=== PATIENT | male | born 1980 | race Caucasian/White ===

== ENCOUNTER 2016-10-11 21:33 | Inpatient (IN) | payer MEDICAID ==
[2016-10-11] MEDS ORDERED: Sodium Chloride 0.9% 1,000 ML ONE (22:25)
--- NOTE | 2016-10-11 22:33 | C.PDOC ---
History Of Present Illness Patient is a 36 year old male who presents to the ER with a complaint of cramping epigastric pain since yesterday. Patient was seen at [facility] for the same symptoms yesterday where he was prescribed an unknown gastritis tablet that has not improved his condition. Patient reports eating refined foods and very few fruits and vegetables. Denies any chest pain, nausea, or vomiting. Time Seen by Provider: 10/11/16 21:52 Chief Complaint (Nursing): Abdominal Pain History Per: Patient History/Exam Limitations: no limitations Onset/Duration Of Symptoms: Hrs Current Symptoms Are (Timing): Still Present Location Of Pain/Discomfort: Epigastric Radiation Of Pain To:: None Quality Of Discomfort: Cramping Associated Symptoms: denies: Nausea, Vomiting, Chest Pain Exacerbating Factors: None Alleviating Factors: None Recent travel outside of the [place]: No Past Medical History Reviewed: Historical Data, Nursing Documentation, Vital Signs Vital Signs: Last Vital Signs Temp 97.5 F L 10/11/16 21:46 Pulse 67 10/11/16 21:46 Resp 16 10/11/16 21:46 BP 118/62 10/11/16 23:12 Pulse Ox 100 10/12/16 01:01 - Medical History PMH: No Chronic Diseases Surgical History: No Surg Hx Family History: States: Unknown Family Hx - Social History Hx Alcohol Use: No Hx Substance Use: No - Immunization History Hx Tetanus Toxoid Vaccination: No Hx Influenza Vaccination: No Hx Pneumococcal Vaccination: No Review Of Systems Cardiovascular: Negative for: Chest Pain Gastrointestinal: Positive for: Abdominal Pain (Epigastric, cramping). Negative for: Nausea, Vomiting Physical Exam - Physical Exam Appears: Well, Non-toxic Skin: Normal Color, Warm, Dry Head: Atraumatic, Normacephalic Oral Mucosa: Moist Chest: Symmetrical, No Tenderness Cardiovascular: Rhythm Regular, No Murmur Respiratory: Normal Breath Sounds, No Rales, No Rhonchi, No Wheezing Gastrointestinal/Abdominal: Soft, Tenderness (Vaguely throughout), Other (Obese) Neurological/Psych: Oriented x3, Normal Speech, Normal Cognition ED Course And Treatment - Laboratory Results Result Diagrams: 10/11/16 22:38 10/11/16 22:38 Lab Interpretation: Abnormal (+ leukocytosis) ECG Rhythm: Sinus Bradycardia ECG Interpretation: Normal Interpretation Of ECG: Minimal voltage criteria for LVH, may be variant. Rate From EC O2 Sat by Pulse Oximetry: 100 - Radiology CXR: Interpreted by Me CXR Interpretation: Yes: No Acute Disease - Other Rad abd x 2 X-Ray: Interpreted by Me (+FOS) - CT Scan/US CT of abdomen w/o contrast Other Rad Studies (CT/US): Read By Radiologist, Radiology Report Reviewed CT/US Interpretation: IMPRESSION: Multiple hypoattenuating lesions in the liver. The largest is a 3.2 cm lesion in the right hepatic lobe. which does not represent a simple cyst. Further evaluation can be performed with CT with dedicated. protocol, MRI or ultrasound. Splenomegaly. Mild mesenteric stranding in the region of the gallbladder. No radiopaque gallstones appreciated. Ultrasound can provide more sensitive evaluation of the biliary system. 13 mm left renal cyst. Areas of apparent bowel wall prominence appear to be due to incomplete distention, but evaluation is. limited without enteric contrast. Progress Note: CT abd/pelvis IV w/ contrast, EKG, and abd x-ray ordered. Toradol IVP, morphine IVP, and IV fluids administered. Reevaluation Time: :33 Reassessment Condition: Improved - Physician Consult Information Outcome Of Conversation: 1330: d/w Dr. Anderson- Surgeon Shot Examiner. Ok to admit and consider US/HIDA in AM Medical Decision Making Medical Decision Making: ? biliary colic Disposition Doctor Will See Patient In The: Hospital Counseled Patient/Family Regarding: Studies Performed, Diagnosis - Disposition Disposition: HOSPITALIZED Disposition Time: :33 Condition: GOOD - Clinical Impression Clinical Impression: Abdominal pain, Biliary colic - Scribe Statement The provider has reviewed the documentation as recorded by the Feroz Sofia All medical record entries made by the Feroz were at my direction and personally dictated by me. I have reviewed the chart and agree that the record accurately reflects my personal performance of the history, physical exam, medical decision making, and the department course for this patient. I have also personally directed, reviewed, and agree with the discharge instructions and disposition.
[2016-10-11 22:50] LABS: BASO # 0.1 K/uL (0.0-0.2); BASO % 0.7 % (0.0-2.0); EOS # 0.1 K/uL (0.0-0.7); EOS % 0.6 % (0.0-4.0); HEMATOCRIT 45.2 % (35.0-51.0); LYMPH # 2.2 K/uL (1.0-4.3); LYMPH % 19.4 % (20.0-40.0); MEAN CELL VOLUME 75.7 fL (80.0-94.0); MEAN CORPUSCULAR HGB CONC 34.3 g/dL (33.0-37.0); MEAN PLATELET VOLUME 8.5 fL (7.2-11.7); MONO # 0.7 K/uL (0.0-0.8); NRBC % 0.2 % (0.0-2.0); RED CELL DISTRIBUTION WIDTH 13.3 % (11.5-14.5); WHITE BLOOD COUNT 11.3 K/uL (4.8-10.8)
[2016-10-11 23:05] LABS: CHLORIDE 100 mmol/L (98-107); POTASSIUM 3.3 mmol/L (3.6-5.2); SODIUM 141 mmol/L (132-148)
[2016-10-11 23:07] LABS: AST/SGOT 27 U/L (17-59); BILIRUBIN,TOTAL 0.7 mg/dL (0.2-1.3); CARBON DIOXIDE 21 mmol/L (22-30); GFR AFRICAN-AMERICAN > 60
[2016-10-11 23:08] LABS: ALB/GLOB RATIO 1.5 (1.0-2.1); ALKALINE PHOSPHATASE 78 U/L (38-126); ALT/SGPT 38 U/L (21-72); BLOOD UREA NITROGEN 18 mg/dL (9-20); CALCIUM 8.4 mg/dl (8.6-10.4); GLUCOSE,RANDOM 121 mg/dL (75-110)
[2016-10-11] MEDS ORDERED: Morphine 4 MG/ML VIAL ONE (23:08)
[2016-10-11] MEDS ORDERED: Sodium Chloride 0.9% 1,000 ML IV ONE (23:08)
[2016-10-11 23:11] LABS: RBC URINE 5 /hpf (0-3); URINE BILIRUBIN NEGATIVE (NEGATIVE); URINE BLOOD NEGATIVE (NEGATIVE); URINE COLOR Yellow (YELLOW); URINE GLUCOSE (UA) NORMAL (Normal); URINE KETONE 2+ mg/dL (NEGATIVE); URINE LEUKOCYTE ESTERASE NEG Leu/uL (Negative); URINE PROTEIN NEGATIVE (NEGATIVE); URINE UROBILINOGEN NORMAL mg/dL (0.2-1.0)
[2016-10-11] MEDS ORDERED: Iohexol 350mg/ml 100 ML ONE (23:41)
--- NOTE | 2016-10-12 00:42 | CT ---
EXAM: CT Abdomen and Pelvis With Intravenous Contrast CLINICAL HISTORY: 36 years old, male; Pain; Abdominal pain; Additional info: Epigastric pain TECHNIQUE: Axial computed tomography images of the abdomen and pelvis with intravenous contrast. This CT exam was performed using one or more of the following dose reduction techniques: automated exposure control, adjustment of the mA and/or kV according to patient size, and/or use of iterative reconstruction technique. Coronal and sagittal reformatted images were created and reviewed. CONTRAST: 100 mL of [id number] administered intravenously. COMPARISON: No relevant prior studies available. FINDINGS: Multiple hypoattenuating lesions in the liver. The largest is a 3.2 cm lesion in the right hepatic lobe which does not represent a simple cyst. The pancreas and adrenal glands demonstrate no acute abnormalities. Splenomegaly. Mild mesenteric stranding in the region of the gallbladder. No radiopaque gallstones appreciated. Ultrasound can provide more sensitive evaluation of the biliary system. The kidneys are symmetric with no evidence of hydronephrosis. 13 mm left renal cyst. The aorta is unremarkable. The small and large bowel as visualized demonstrate no evidence of obstruction or clear focus of inflammation. Areas of apparent bowel wall prominence appear to be due to incomplete distention, but evaluation is limited without enteric contrast. Normal caliber appendix. No ascites. No free air. IMPRESSION: Multiple hypoattenuating lesions in the liver. The largest is a 3.2 cm lesion in the right hepatic lobe which does not represent a simple cyst. Further evaluation can be performed with CT with dedicated protocol, MRI or ultrasound. Splenomegaly. Mild mesenteric stranding in the region of the gallbladder. No radiopaque gallstones appreciated. Ultrasound can provide more sensitive evaluation of the biliary system. 13 mm left renal cyst. Areas of apparent bowel wall prominence appear to be due to incomplete distention, but evaluation is limited without enteric contrast.
[2016-10-12] MEDS ORDERED: Piperacillin/Tazobact 3.375 gm 100 ML IV STA (01:26)
[2016-10-12] MEDS ORDERED: Piperacillin/Tazobact 3.375 gm 100 ML IVPB ONE (01:42)
--- NOTE | 2016-10-12 02:29 | CP.PCM.HP ---
History of Present Illness - History of Present Illness History of Present Illness: GENERAL SURGERY HISTORY AND PHYSICAL FOR FRANNIEALFREDO 36yo M with no PMHx presents to the ED with epigastric and RUQ abdominal pain. The pain began yesterday. He was seen at [facility] and diagnosed with gastritis and given a prescription for Famotidine. Per the patient, no imaging was done and he did not have symptom relief from the Famotidine. The pain worsened, which prompted the patient to come to the ED at [facility]. The pain is worse with moving and eating. He took ibuprofen and an "overseas pill for pain" which did not relieve his symptoms. He made himself vomit once but has not vomited other than that one time. He denies nausea. Denies diarrhea. Last BM 3 days ago but passed flatus today. He denies SOB/CP/fever/chills. Of note, the patient states that this is the third time these symptoms have occurred but previously they went away on their own after several hours. PMHx: none Surgeries: Left foot surgery Allergies: none Social history: denies etoh or tobacco use Present on Admission - Present on Admission Any Indicators Present on Admission: No Review of Systems - Review of Systems All systems: reviewed and no additional remarkable complaints except (as per HPI ) Past Patient History - Past Social History Smoking Status: Never Smoked - PSYCHIATRIC Hx Substance Use: No - SURGICAL HISTORY Hx Surgeries: No Meds Allergies/Adverse Reactions: Allergies Allergy/AdvReac Type Severity Reaction Status Date / Time No Known Allergies Allergy Verified 10/11/16 21:48 Physical Exam - Constitutional Appears: Well - Head Exam Head Exam: ATRAUMATIC, NORMAL INSPECTION, NORMOCEPHALIC - Eye Exam Eye Exam: EOMI, Normal appearance - Respiratory Exam Respiratory Exam: NORMAL BREATHING PATTERN. absent: Respiratory Distress - Cardiovascular Exam Cardiovascular Exam: +S1, +S2 - GI/Abdominal Exam GI & Abdominal Exam: Soft, Tenderness (mildly tender in epigastric and RUQ areas ). absent: Distended, Firm, Guarding, Rebound, Rigid - Extremities Exam Extremities exam: Positive for: normal inspection. Negative for: pedal edema - Neurological Exam Neurological exam: Alert, CN II-XII Intact, Oriented x3 - Psychiatric Exam Psychiatric exam: Normal Affect, Normal Mood - Skin Skin Exam: Dry, Normal Color, Warm Results - Vital Signs Recent Vital Signs: Last Vital Signs Temp 97.5 F L 10/11/16 21:46 Pulse 67 10/11/16 21:46 Resp 16 10/11/16 21:46 BP 118/62 10/11/16 23:12 Pulse Ox 100 10/12/16 01:34 - Labs Result Diagrams: 10/11/16 22:38 10/11/16 22:38 Labs: Laboratory Results - last 24 hr 10/11/16 10/11/16 10/11/16 22:38 22:38 22:49 WBC 11.3 H RBC 5.97 H Hgb 15.5 Hct 45.2 MCV 75.7 L MCH 26.0 L MCHC 34.3 RDW 13.3 Plt Count 283 MPV 8.5 Neut % (Auto) 73.3 Lymph % (Auto) 19.4 L [place] % (Auto) 6.0 Eos % (Auto) 0.6 Baso % (Auto) 0.7 Neut # 8.3 H Lymph # 2.2 [place] # 0.7 Eos # 0.1 Baso # 0.1 Sodium 141 Potassium 3.3 L Chloride 100 Carbon Dioxide 21 L Anion Gap 23 H BUN 18 Creatinine 1.1 Est GFR ( Amer) > 60 Est GFR (Non-Af Amer) > 60 Random Glucose 121 H Calcium 8.4 L Total Bilirubin 0.7 AST 27 ALT 38 Alkaline Phosphatase 78 Troponin I < 0.0120 Total Protein 7.0 Albumin 4.2 Globulin 2.7 Albumin/Globulin Ratio 1.5 Lipase 129 Urine Color Yellow Urine Clarity Hazy Urine pH 8.0 Ur Specific [place] 1.021 Urine Protein Negative Urine Glucose (UA) Normal Urine Ketones 2+ H Urine Blood Negative Urine Nitrate Negative Urine Bilirubin Negative Urine Urobilinogen Normal Ur Leukocyte Esterase Neg Urine RBC (Auto) 5 H Amorphous Sediment Occ H Urine Opiates Screen Urine Methadone Screen Ur Barbiturates Screen Ur Phencyclidine Scrn Ur Amphetamines Screen U Benzodiazepines Scrn U Oth Cocaine Metabols U Cannabinoids Screen 10/11/16 22:49 WBC RBC Hgb Hct MCV MCH MCHC RDW Plt Count MPV Neut % (Auto) Lymph % (Auto) [place] % (Auto) Eos % (Auto) Baso % (Auto) Neut # Lymph # [place] # Eos # Baso # Sodium Potassium Chloride Carbon Dioxide Anion Gap BUN Creatinine Est GFR ( Amer) Est GFR (Non-Af Amer) Random Glucose Calcium Total Bilirubin AST ALT Alkaline Phosphatase Troponin I Total Protein Albumin Globulin Albumin/Globulin Ratio Lipase Urine Color Urine Clarity Urine pH Ur Specific [place] Urine Protein Urine Glucose (UA) Urine Ketones Urine Blood Urine Nitrate Urine Bilirubin Urine Urobilinogen Ur Leukocyte Esterase Urine RBC (Auto) Amorphous Sediment Urine Opiates Screen Negative Urine Methadone Screen Negative Ur Barbiturates Screen Positive H Ur Phencyclidine Scrn Negative Ur Amphetamines Screen Negative U Benzodiazepines Scrn Negative U Oth Cocaine Metabols Negative U Cannabinoids Screen Negative Assessment & Plan - Assessment and Plan (Free Text) Assessment: 36yo M with no PMHx presents to the ED with epigastric and RUQ abdominal pain. - Afebrile, VSS - WBC 11.5 - Hypokalemia K 3.3 - replaced - CT: mesenteric stranding in region of gallbladder, no stones - Ultrasound ordered - HIDA ordered - Zosyn - Morphine and Zofran PRN - NPO and IV fluids - Discussed plan with Dr. Melvin
[2016-10-12] MEDS: Sodium Chloride 0.9% 1,000 ML IV SCH ×3 (03:46→19:11)
[2016-10-12] MEDS: Piperacill/Tazo 3.375gm in Dex 3.375 GM/50 ML BAG IVPB SCH ×4 (03:48→20:45)
--- NOTE | 2016-10-12 12:44 | RAD ---
PROCEDURE: Radiographs of the chest and abdomen (obstructive series) HISTORY: Abdominal pain. COMPARISON: No prior. TECHNIQUE: AP radiograph of the chest, with upright and supine radiographs of the abdomen. FINDINGS: CHEST: Lungs: Clear. Cardiovascular: Normal size heart. No pulmonary vascular congestion. Pleura: No pleural fluid. No pneumothorax. Other findings: None. ABDOMEN AND PELVIS: Bowel: Constipation without fecal impaction or obstruction. Free air: None. Bones: Unremarkable. Other findings: None. IMPRESSION: Constipation without fecal impaction or obstruction. Otherwise unremarkable study. Concordant results with the preliminary interpretation rendered by the emergency department physician procedure.
--- NOTE | 2016-10-12 12:57 | US ---
HISTORY: Epig/RUQ pain COMPARISON: October 11, 2016. CT abdomen and pelvis. TECHNIQUE: Sonographic evaluation of the right upper quadrant of the abdomen. FINDINGS: LIVER: Measures 16.7 cm in length. Hepatopedal blood flow. Fatty infiltration manifest ultrasonographically as increased echogenicity of the liver parenchyma. Echogenic mass within the liver well-circumscribed 3.1 x 2.4 cm consistent with a hepatic hemangioma. Conforms to findings identified on recent CT of the abdomen and pelvis. Incidental finding(s): Multiple hepatic cysts. GALLBLADDER: Focal bladder wall thickening, trace pericholecystic fluid. Negative sonographic Perkins's sign. COMMON BILE DUCT: Measures 5.8 mm. No stones. No dilatation. PANCREAS: Unremarkable as visualized. No mass. No ductal dilatation. RIGHT KIDNEY: Measures 5 x 12.6 cm in length. Normal echogenicity. No calculus, mass, or hydronephrosis. AORTA: No aneurysmal dilatation. IVC: Unremarkable. OTHER FINDINGS: None . IMPRESSION: Negative study for cholelithiasis or sonographic Perkins's sign. Gallbladder wall thickening/ trace pericholecystic fluid are nonspecific findings but can be seen with acalculous cholecystitis. Additional benign and/or incidental findings described above.
--- NOTE | 2016-10-12 14:10 | NM ---
PROCEDURE: Nuclear Medicine Hepatobiliary Scan [place] HISTORY: rule out cholecystitis COMPARISON: October 12, 2016. Abdominal ultrasound TECHNIQUE: 5.3 mCi of technetium 99m Mebrofenin was administered intravenously. Planar images of the abdomen were obtained at 5 min intervals to 60 mins. Delayed images were also obtained. FINDINGS: LIVER: Timely and homogenous uptake. COMMON BILE DUCT: identified at 30 mins. GALLBLADDER: Not identified at 3 hours. SMALL BOWEL: Identified at 3 hours IMPRESSION: Abnormal Hepatobiliary Scan. The cystic duct is occluded. Findings consistent with acalculous cholecystitis. .
[2016-10-13] MEDS: Piperacill/Tazo 3.375gm in Dex 3.375 GM/50 ML BAG IVPB SCH ×4 (02:02→21:57)
[2016-10-13] MEDS: Sodium Chloride 0.9% 1,000 ML IV SCH ×3 (03:27→18:22)
--- NOTE | 2016-10-13 08:10 | CP.PCM.PN ---
Subjective - Date & Time of Evaluation Date of Evaluation: 10/13/16 Time of Evaluation: 08:08 - Subjective Subjective: surgery: Dr. Melvin Patient doing well today. Patient denies pain at this time. He is tolerating liquid diet. Discussed in detail u/s and HIDA scan which show acute cholecystitis. Patient aware and agreeable to surgical intervention in am on Friday. Objective - Vital Signs/Intake and Output Vital Signs (last 24 hours): Temp Pulse Resp BP Pulse Ox 99.6 F 68 20 146/91 H 96 10/13/16 01:40 10/13/16 01:40 10/13/16 01:40 10/13/16 01:40 10/13/16 01:40 Intake and Output: 10/13/16 10/13/16 06:59 18:59 Intake Total 1670 Balance 1670 - Medications Medications: Current Medications Famotidine (Pepcid) 20 mg IVP BID [facility] Last Admin: 10/12/16 18:20 Dose: 20 mg Sodium Chloride (Sodium Chloride 0.9%) 1,000 mls @ 125 mls/hr IV .Q8H [facility] Last Admin: 10/13/16 03:27 Dose: 125 mls/hr Piperacillin Sod/Tazobactam Sod (Zosyn 3.375 Gm Iv Premix) 3.375 gm in 50 mls @ 100 mls/hr IVPB Q6H [facility] Last Admin: 10/13/16 07:55 Dose: 100 mls/hr Morphine Sulfate (Morphine) 2 mg IVP Q4 PRN PRN Reason: Pain, moderate (4-7) Last Admin: 10/13/16 07:33 Dose: 2 mg Ondansetron HCl (Zofran Inj) 4 mg IVP Q4 PRN PRN Reason: Nausea/Vomiting Last Admin: 10/13/16 02:02 Dose: 4 mg Pneumococcal Polyvalent Vaccine (Pneumovax 23 Vaccine) 0.5 ml IM .ONCE ONE Stop: 10/14/16 10:01 - Constitutional Appears: Non-toxic, No Acute Distress - Head Exam Head Exam: ATRAUMATIC, NORMOCEPHALIC - Eye Exam Eye Exam: EOMI, Normal appearance - ENT Exam ENT Exam: Mucous Membranes Moist - Respiratory Exam Respiratory Exam: NORMAL BREATHING PATTERN. absent: Respiratory Distress - Cardiovascular Exam Cardiovascular Exam: REGULAR RHYTHM. absent: Tachycardia - GI/Abdominal Exam GI & Abdominal Exam: Soft. absent: Distended, Tenderness Assessment and Plan - Assessment and Plan (Free Text) Assessment: 36 y/o male w/ acalculous cholecystitis Plan: -OR on Friday -NPO past MN today -IVfs -IV abx -encourage OOB and IS use -daily labs -further recs per Dr. Ngozi Fields PGY1
[2016-10-13 08:23] LABS: BASO # 0.1 K/uL (0.0-0.2); BASO % 0.6 % (0.0-2.0); EOS % 0.1 % (0.0-4.0); HEMATOCRIT 46.9 % (35.0-51.0); LYMPH # 1.5 K/uL (1.0-4.3); LYMPH % 11.1 % (20.0-40.0); MEAN CELL VOLUME 75.9 fL (80.0-94.0); MEAN CORPUSCULAR HEMOGLOBIN 25.2 pg (27.0-31.0); MEAN CORPUSCULAR HGB CONC 33.2 g/dL (33.0-37.0); MEAN PLATELET VOLUME 8.4 fL (7.2-11.7); MONO # 1.1 K/uL (0.0-0.8); MONO % 8.3 % (0.0-10.0); NRBC % 0.4 % (0.0-2.0); RED CELL DISTRIBUTION WIDTH 13.6 % (11.5-14.5); WHITE BLOOD COUNT 13.5 K/uL (4.8-10.8)
[2016-10-13 08:32] LABS: INR 1.3
[2016-10-13 08:35] LABS: CHLORIDE 97 mmol/L (98-107); POTASSIUM 3.9 mmol/L (3.6-5.2); SODIUM 138 mmol/L (132-148)
[2016-10-13 08:37] LABS: AST/SGOT 78 U/L (17-59); BILIRUBIN,TOTAL 2.4 mg/dL (0.2-1.3); CARBON DIOXIDE 25 mmol/L (22-30); GFR AFRICAN-AMERICAN > 60
[2016-10-13 08:38] LABS: ALB/GLOB RATIO 1.3 (1.0-2.1); ALKALINE PHOSPHATASE 100 U/L (38-126); ALT/SGPT 176 U/L (21-72); BLOOD UREA NITROGEN 11 mg/dL (9-20); CALCIUM 7.8 mg/dl (8.6-10.4); GLUCOSE,RANDOM 121 mg/dL (75-110); TOTAL PROTEIN 6.5 g/dL (6.3-8.3)
[2016-10-14] MEDS: Sodium Chloride 0.9% 1,000 ML IV SCH ×5 (00:06→18:32)
[2016-10-14] MEDS: Piperacill/Tazo 3.375gm in Dex 3.375 GM/50 ML BAG IVPB SCH ×4 (02:42→20:30)
[2016-10-14 07:48] LABS: BASO # 0.1 K/uL (0.0-0.2); BASO % 0.4 % (0.0-2.0); LYMPH # 2.1 K/uL (1.0-4.3); LYMPH % 12.3 % (20.0-40.0); MEAN CELL VOLUME 76.1 fL (80.0-94.0); MEAN CORPUSCULAR HEMOGLOBIN 25.8 pg (27.0-31.0); MEAN CORPUSCULAR HGB CONC 33.8 g/dL (33.0-37.0); MEAN PLATELET VOLUME 8.8 fL (7.2-11.7); MONO # 1.7 K/uL (0.0-0.8); MONO % 9.6 % (0.0-10.0); NRBC % 0.1 % (0.0-2.0); RED CELL DISTRIBUTION WIDTH 13.2 % (11.5-14.5); WHITE BLOOD COUNT 17.5 K/uL (4.8-10.8)
[2016-10-14 07:49] LABS: CHLORIDE 97 mmol/L (98-107); POTASSIUM 3.6 mmol/L (3.6-5.2); SODIUM 133 mmol/L (132-148)
[2016-10-14 07:51] LABS: GFR AFRICAN-AMERICAN > 60
[2016-10-14 07:52] LABS: ALB/GLOB RATIO 1.2 (1.0-2.1); ALKALINE PHOSPHATASE 90 U/L (38-126); ALT/SGPT 111 U/L (21-72); AST/SGOT 45 U/L (17-59); BILIRUBIN,TOTAL 1.5 mg/dL (0.2-1.3); BLOOD UREA NITROGEN 9 mg/dL (9-20); CALCIUM 7.7 mg/dl (8.6-10.4); CARBON DIOXIDE 26 mmol/L (22-30); GLUCOSE,RANDOM 104 mg/dL (75-110); TOTAL PROTEIN 6.1 g/dL (6.3-8.3)
[2016-10-14] MEDS ORDERED: Pneumococcal 23-Valent Vaccine IM ONE (10:00)
[2016-10-14] MEDS ORDERED: Midazolam 2 MG/2 ML VIAL ONE (13:31)
[2016-10-14] MEDS ORDERED: Propofol 10 mg/ml Inj (20 ML) ONE (13:32)
[2016-10-14] MEDS ORDERED: Rocuronium 10 mg/ml (5 ml) ONE (13:33)
[2016-10-14] MEDS ORDERED: Morphine 4 MG/ML VIAL ONE (14:38)
[2016-10-14] MEDS: Bupivacaine-Epi 0.5%-1:200,000 PF Inj ONE ×2 (14:49→15:23)
[2016-10-14] MEDS ORDERED: HYDROmorphone 0.5 mg/0.5 ml ISec IVP PRN ×2 (15:12→15:55)
--- NOTE | 2016-10-14 15:59 | PCM.SURG1 ---
Surgeon's Initial Post Op Note - Surgeon's Notes Surgeon: Ngozi Field Attendant: Cipriano PGY2 Type of Anesthesia: General Endo, Local Pre-Operative Diagnosis: Cholecystitis Operative Findings: Acutely inflamed gangrenous gallbladder Post-Operative Diagnosis: Same Operation Performed: Laparoscopic converted to open cholecystectomy Specimen/Specimens Removed: gallbladder Estimated Blood Loss: EBL {In ML}: 150 Blood Products Given: N/A Drains Used: [place] Post-Op Condition: Good Date of Surgery/Procedure: 10/14/16 Time of Surgery/Procedure: 15:59
--- NOTE | 2016-10-14 19:36 | OP ---
PROCEDURE DATE: 10/14/2016 PREOPERATIVE DIAGNOSES: Acute cholecystitis and cholelithiasis. POSTOPERATIVE DIAGNOSES: Acute gangrenous cholecystitis and cholelithiasis. PROCEDURE PERFORMED: Laparoscopy, attempted laparoscopic cholecystectomy then exploratory laparotomy and open cholecystectomy. FINDINGS: The gallbladder was completely enveloped by thick omental adhesions. The gallbladder was gangrenous, visually at the fundus, but entire gallbladder was so distended, thickened mckeon with mar ked inflammatory reaction. There were no identifiable structures present, especially around the chol ecystoduodenal ligament area. There were stones felt in the ampulla and also up around the cystic du ct area. Liver appeared to be within normal limits. PROCEDURE: Under general anesthesia, the patient was prepared and draped in sterile fashion. First, a Veress needle was introduced into the umbilicus. CO2 was insufflated to about 15 mmHg pressure. A 10 mm trocar was then inserted and then under direct vision, a 5 mm epigastric port and a 5 mm righ t upper quadrant port were inserted. The patient was placed in a reverse Trendelenburg position, tur radha over towards the left side. The gallbladder was nowhere visible at this point. With some bleedi ng, the omentum was bluntly removed from the liver and exposing the fundus, but it was so tense and i t was so distended it was impossible to put any grasper onto it. Therefore with a large bore syringe and a needle, the gallbladder was partially emptied out ____ it was partially collapsed, the fundus was grasped and then the rest of the omentum was from the gallbladder. This was done with difficulty, but still when we got to the area of the ampulla, it was impossible to identify anything because the bowels were so distended, the omentum was all the way up there and adherent to the liver and the gallbladder. Attempts at blunt dissection and hydrodissection were made, but it was impossib le to identify anything. Therefore, at this juncture, before we can damage anything, we decided to o pen up the patient. A right Pito incision was made. The peritoneal cavity was entered through thi s incision. The bowels, the transverse colon and the stomach were walled off with large laparotomy p ads. The gallbladder is still way up under the rib cage and it was impossible to identify anything. However with some of blunt finger dissection, I was able to isolate the cystic duct. This was not t ransected at this point. The fundus was then identified, serosal incision was made and then the gall bladder was from the liver with blunt dissection. Bleeders controlled with some pressure. The dissection was carried all the way down to the cystic duct area after which the cystic artery an d the cystic duct were then transected and then ligated with 0 Vicryl ties. The area was irrigated w ith copious amounts of saline solution. Irrigating fluid was then suctioned out. A drain was left i n place. It was brought out through a separate stab wound on the right side of the abdomen. The abd omen was then closed in layers also including the laparoscopic incision. The estimated blood loss for the procedure probably approximately was about 150 mL. The patient jamil rated the procedure quite well and left the operating room in good condition. Lucien Melvin MD cc: [id number] TT: 10/14/2016 19:35:17 jn
[2016-10-14] MEDS: HYDROmorphone 0.5 mg/0.5 ml ISec IVP PRN (20:08)
[2016-10-15 00:01] VITALS: RESP 20
[2016-10-15] MEDS: Sodium Chloride 0.9% 1,000 ML IV SCH ×3 (01:20→11:04)
[2016-10-15] MEDS: Piperacill/Tazo 3.375gm in Dex 3.375 GM/50 ML BAG IVPB SCH ×4 (02:19→20:26)
[2016-10-15] MEDS: HYDROmorphone 0.5 mg/0.5 ml ISec IVP PRN ×2 (02:21→07:36)
[2016-10-15 08:27] LABS: BASO % 0.1 % (0.0-2.0); HEMATOCRIT 43.7 % (35.0-51.0); LYMPH # 1.2 K/uL (1.0-4.3); LYMPH % 6.8 % (20.0-40.0); MEAN CELL VOLUME 76.1 fL (80.0-94.0); MEAN CORPUSCULAR HEMOGLOBIN 24.9 pg (27.0-31.0); MEAN CORPUSCULAR HGB CONC 32.7 g/dL (33.0-37.0); MONO # 0.9 K/uL (0.0-0.8); MONO % 5.3 % (0.0-10.0); PLATELET COUNT 263 K/uL (130-400); RED CELL DISTRIBUTION WIDTH 13.4 % (11.5-14.5); WHITE BLOOD COUNT 17.4 K/uL (4.8-10.8)
[2016-10-15] MEDS ORDERED: Oxycodone/Acetaminophen 5/325 mg Tab PO PRN (08:43)
[2016-10-15] MEDS ORDERED: HYDROmorphone 0.5 mg/0.5 ml ISec IVP PRN (08:45)
[2016-10-15 09:51] LABS: NEUTROPHIL 91 % (50-75); TOTAL CELLS COUNTED 100
[2016-10-15 09:53] LABS: CHLORIDE 99 mmol/L (98-107); POTASSIUM 4.2 mmol/L (3.6-5.2); SODIUM 134 mmol/L (132-148)
[2016-10-15 09:55] LABS: AST/SGOT 58 U/L (17-59); BILIRUBIN,TOTAL 0.9 mg/dL (0.2-1.3); CARBON DIOXIDE 25 mmol/L (22-30); GFR AFRICAN-AMERICAN > 60; TOTAL PROTEIN 6.1 g/dL (6.3-8.3)
[2016-10-15 09:56] LABS: ALKALINE PHOSPHATASE 75 U/L (38-126); ALT/SGPT 107 U/L (21-72); BLOOD UREA NITROGEN 14 mg/dL (9-20); GLUCOSE,RANDOM 119 mg/dL (75-110)
--- NOTE | 2016-10-15 14:42 | CP.PCM.PN ---
Subjective - Date & Time of Evaluation Date of Evaluation: 10/15/16 Time of Evaluation: 07:00 - Subjective Subjective: GENERAL SURGERY PROGRESS NOTE FOR DR. CRAWFORD Pt seen and examined at bedside. Pt reports he slept well, without significant overnight pain. Patient denies any overnight events. Pt reports headache, muscle weakness, and pain reported 6/ 10 and well controlled with current medication. Patient denies any bowel movements and flatus. Pt reported ambulation to bathroom. Patient reports usage of spirometer. Patient tolerating clear liquid diet without complaints. Patient denies chest pain, SOB, nausea, vomiting, fever, chills, dizziness, numbness, and tingling. Objective - Vital Signs/Intake and Output Vital Signs (last 24 hours): Temp Pulse Resp BP Pulse Ox 98.3 F 101 H 20 113/75 95 10/15/16 08:20 10/15/16 08:20 10/15/16 08:20 10/15/16 08:20 10/15/16 08:20 Intake and Output: 10/15/16 10/15/16 06:59 18:59 Intake Total 1950 590 Output Total 300 60 Balance 1650 530 - Medications Medications: Current Medications Famotidine (Pepcid) 20 mg IVP BID [facility] Last Admin: 10/15/16 09:13 Dose: 20 mg Hydromorphone HCl (Dilaudid) 0.5 mg IVP Q3H PRN PRN Reason: pain Last Admin: 10/15/16 11:59 Dose: 0.5 mg Sodium Chloride (Sodium Chloride 0.9%) 1,000 mls @ 125 mls/hr IV .Q8H [facility] Last Admin: 10/15/16 11:04 Dose: 125 mls/hr Piperacillin Sod/Tazobactam Sod (Zosyn 3.375 Gm Iv Premix) 3.375 gm in 50 mls @ 100 mls/hr IVPB Q6H [facility] Last Admin: 10/15/16 14:05 Dose: 100 mls/hr Ondansetron HCl (Zofran Inj) 4 mg IVP Q4 PRN PRN Reason: Nausea/Vomiting Last Admin: 10/13/16 02:02 Dose: 4 mg Oxycodone/Acetaminophen (Percocet 5/325 Mg Tab) 2 tab PO Q4H PRN PRN Reason: Pain, severe (8-10) Stop: 10/18/16 08:44 Oxycodone/Acetaminophen (Percocet 5/325 Mg Tab) 1 tab PO Q4H PRN PRN Reason: Pain, moderate (4-7) Stop: 10/18/16 08:44 - Labs Labs: 10/15/16 08:19 10/15/16 08:19 PT 14.7 SECONDS (9.7-12.2) H 10/13/16 08:17 INR 1.3 10/13/16 08:17 APTT 27 SECONDS (21-34) 10/13/16 08:17 - Constitutional Appears: Well, Non-toxic - Head Exam Head Exam: ATRAUMATIC, NORMAL INSPECTION, NORMOCEPHALIC - Eye Exam Eye Exam: Normal appearance. absent: Conjunctival injection, Scleral icterus - ENT Exam ENT Exam: Mucous Membranes Moist - Respiratory Exam Respiratory Exam: Clear to Ausculation Bilateral, NORMAL BREATHING PATTERN - Cardiovascular Exam Cardiovascular Exam: Tachycardia (mild), +S1, +S2 - GI/Abdominal Exam GI & Abdominal Exam: Distended. absent: Guarding, Rigid, Tenderness, Rebound Additional comments: Laura drain in place w/ 300mL drained since surgery yesterday Dressings clean dry and intact - Extremities Exam Extremities Exam: Normal Inspection. absent: Calf Tenderness, Joint Swelling, Pedal Edema - Neurological Exam Neurological Exam: Alert, Awake, Oriented x3 - Psychiatric Exam Psychiatric exam: Normal Affect, Normal Mood - Skin Skin Exam: Dry, Warm. absent: Cyanosis, Diaphoretic, Erythema Assessment and Plan - Assessment and Plan (Free Text) Assessment: Pt is a 36 M with gangrenous cholecystitis s/p open cholecystectomy POD 1 - Afebrile, vital signs stable - Leukocytosis remains w/ WBC 17.4 - Hb 14.3, no change from yesterday - F/u tomorrow labs and laura output - Strongly encouraged ambulation and IS - Pt tolerated liquid diet, advanced to low fat diet - DCed Dilaudid, switched to Morphine 4mg IVP w/ percocet for breakthrough - Continue IV Zosyn for at least 1 more day - Discussed w/ Dr. Ngozi Escalona PGY-2
[2016-10-15] MEDS ORDERED: Morphine 4 MG/ML VIAL IVP PRN (14:51)
[2016-10-15] MEDS: Oxycodone/Acetaminophen 5/325 mg Tab PO PRN (20:27)
[2016-10-16] MEDS: Oxycodone/Acetaminophen 5/325 mg Tab PO PRN ×2 (00:27→06:27)
[2016-10-16] MEDS: guaiFENesin 100 mg/5 ml Syrup UD PO PRN ×3 (00:53→21:45)
[2016-10-16] MEDS: Piperacill/Tazo 3.375gm in Dex 3.375 GM/50 ML BAG IVPB SCH ×4 (02:12→20:27)
[2016-10-16 08:18] LABS: BASO % 0.2 % (0.0-2.0); HEMATOCRIT 45.8 % (35.0-51.0); LYMPH # 1.7 K/uL (1.0-4.3); LYMPH % 10.9 % (20.0-40.0); MEAN CELL VOLUME 75.5 fL (80.0-94.0); MEAN CORPUSCULAR HEMOGLOBIN 25.2 pg (27.0-31.0); MEAN CORPUSCULAR HGB CONC 33.3 g/dL (33.0-37.0); MEAN PLATELET VOLUME 8.6 fL (7.2-11.7); MONO % 6.3 % (0.0-10.0); RED CELL DISTRIBUTION WIDTH 13.4 % (11.5-14.5)
--- NOTE | 2016-10-16 08:26 | CP.PCM.PN ---
Subjective - Date & Time of Evaluation Date of Evaluation: 10/16/16 Time of Evaluation: 08:22 - Subjective Subjective: Surgery: Dr. Melvin Pt seen and examined. Had N/V/D overnight. Complaints of pain. Says he needs stronger pain meds. No F/C Objective - Vital Signs/Intake and Output Vital Signs (last 24 hours): Temp Pulse Resp BP Pulse Ox 98.4 F 96 H 20 123/79 95 10/16/16 00:00 10/16/16 00:00 10/16/16 00:00 10/16/16 00:00 10/16/16 00:00 Intake and Output: 10/16/16 10/16/16 06:59 18:59 Intake Total 840 Output Total 470 Balance 370 - Medications Medications: Current Medications Famotidine (Pepcid) 20 mg PO DAILY OCTAVIO Guaifenesin (Robitussin) 100 mg PO Q4H PRN PRN Reason: Cough Last Admin: 10/16/16 06:26 Dose: 100 mg Piperacillin Sod/Tazobactam Sod (Zosyn 3.375 Gm Iv Premix) 3.375 gm in 50 mls @ 100 mls/hr IVPB Q6H OCTAVIO Last Admin: 10/16/16 02:12 Dose: 100 mls/hr Ondansetron HCl (Zofran Inj) 4 mg IVP Q4 PRN PRN Reason: Nausea/Vomiting Last Admin: 10/16/16 00:23 Dose: 4 mg Oxycodone/Acetaminophen (Percocet 5/325 Mg Tab) 2 tab PO Q4H PRN PRN Reason: Pain, severe (8-10) Stop: 10/18/16 08:44 Last Admin: 10/16/16 06:27 Dose: 2 tab - Labs Labs: 10/15/16 08:19 10/15/16 08:19 PT 14.7 SECONDS (9.7-12.2) H 10/13/16 08:17 INR 1.3 10/13/16 08:17 APTT 27 SECONDS (21-34) 10/13/16 08:17 - Constitutional Appears: Non-toxic, No Acute Distress - Head Exam Head Exam: ATRAUMATIC, NORMOCEPHALIC - Eye Exam Eye Exam: EOMI - ENT Exam ENT Exam: Mucous Membranes Moist - Neck Exam Neck Exam: Full ROM - Respiratory Exam Respiratory Exam: NORMAL BREATHING PATTERN. absent: Accessory Muscle Use, Respiratory Distress - GI/Abdominal Exam GI & Abdominal Exam: Soft, Tenderness (perry-incisional ). absent: Distended, Firm, Guarding, Rigid, Rebound Additional comments: incisions C/D/I Cornell in place 200cc/12hr serosang - Extremities Exam Extremities Exam: absent: Calf Tenderness, Pedal Edema - Neurological Exam Neurological Exam: Alert, Awake, Oriented x3 Assessment and Plan - Assessment and Plan (Free Text) Assessment: 36M w. cholecystitis, s/p lap converted to open jerald, POD#2 -F/U AM labs -c/w abx, trend wbc -Cornell 200cc/12hr serosang, continue to monitor -pain management -encourage OOB, ambulation and IS use -d/w attending Zemaitis PGY2
[2016-10-16 09:11] LABS: CHLORIDE 99 mmol/L (98-107); POTASSIUM 3.9 mmol/L (3.6-5.2); SODIUM 136 mmol/L (132-148)
[2016-10-16 09:13] LABS: GFR AFRICAN-AMERICAN > 60
[2016-10-16 09:14] LABS: ALKALINE PHOSPHATASE 98 U/L (38-126); ALT/SGPT 70 U/L (21-72); AST/SGOT 42 U/L (17-59); BILIRUBIN,TOTAL 0.7 mg/dL (0.2-1.3); BLOOD UREA NITROGEN 15 mg/dL (9-20); CARBON DIOXIDE 28 mmol/L (22-30); GLUCOSE,RANDOM 117 mg/dL (75-110); TOTAL PROTEIN 5.8 g/dL (6.3-8.3)
[2016-10-16 09:15] LABS: CALCIUM 7.8 mg/dl (8.6-10.4)
[2016-10-17 00:21] VITALS: O2SAT 95
[2016-10-17] MEDS: Oxycodone/Acetaminophen 5/325 mg Tab PO PRN ×3 (02:20→12:46)
[2016-10-17] MEDS: Piperacill/Tazo 3.375gm in Dex 3.375 GM/50 ML BAG IVPB SCH ×3 (02:20→14:01)
[2016-10-17 08:45] LABS: HEMATOCRIT 45.2 % (35.0-51.0); MEAN CORPUSCULAR HGB CONC 32.9 g/dL (33.0-37.0); MEAN PLATELET VOLUME 8.1 fL (7.2-11.7); RED CELL DISTRIBUTION WIDTH 13.6 % (11.5-14.5); WHITE BLOOD COUNT 9.1 K/uL (4.8-10.8)
[2016-10-17 09:03] LABS: CHLORIDE 100 mmol/L (98-107)
[2016-10-17 09:04] LABS: SODIUM 135 mmol/L (132-148)
[2016-10-17 09:05] LABS: POTASSIUM 3.5 mmol/L (3.6-5.2)
[2016-10-17 09:07] LABS: ALB/GLOB RATIO 1.1 (1.0-2.1); ALKALINE PHOSPHATASE 65 U/L (38-126); ALT/SGPT 58 U/L (21-72); AST/SGOT 26 U/L (17-59); BILIRUBIN,TOTAL 0.7 mg/dL (0.2-1.3); BLOOD UREA NITROGEN 11 mg/dL (9-20); CARBON DIOXIDE 26 mmol/L (22-30); GFR AFRICAN-AMERICAN > 60; GLUCOSE,RANDOM 112 mg/dL (75-110); TOTAL PROTEIN 6.1 g/dL (6.3-8.3)
[2016-10-17] MEDS: guaiFENesin 100 mg/5 ml Syrup UD PO PRN (10:23)
--- NOTE | 2016-10-17 15:00 | CP.PCM.DIS ---
Provider - Provider Date of Admission: 10/14/16 14:00 Attending physician: Lucien Melvin MD Time Spent in preparation of Discharge (in minutes): 40 Diagnosis - Discharge Diagnosis (1) Cholecystitis Status: Acute Hospital Course - Lab Results Lab Results: Most Recent Lab Values WBC 9.1 K/uL (4.8-10.8) 10/17/16 08:41 RBC 5.95 Mil/uL (4.40-5.90) H 10/17/16 08:41 Hgb 14.9 g/dL (12.0-18.0) 10/17/16 08:41 Hct 45.2 % (35.0-51.0) 10/17/16 08:41 MCV 76.0 fL (80.0-94.0) L 10/17/16 08:41 MCH 25.0 pg (27.0-31.0) L 10/17/16 08:41 MCHC 32.9 g/dL (33.0-37.0) L 10/17/16 08:41 RDW 13.6 % (11.5-14.5) 10/17/16 08:41 Plt Count 372 K/uL (130-400) 10/17/16 08:41 MPV 8.1 fL (7.2-11.7) 10/17/16 08:41 Neut % (Auto) 82.6 % (50.0-75.0) H 10/16/16 08:06 Lymph % (Auto) 10.9 % (20.0-40.0) L 10/16/16 08:06 Burnett % (Auto) 6.3 % (0.0-10.0) 10/16/16 08:06 Eos % (Auto) 0.0 % (0.0-4.0) 10/16/16 08:06 Baso % (Auto) 0.2 % (0.0-2.0) 10/16/16 08:06 Neut # 13.2 K/uL (1.8-7.0) H 10/16/16 08:06 Lymph # 1.7 K/uL (1.0-4.3) 10/16/16 08:06 Burnett # 1.0 K/uL (0.0-0.8) H 10/16/16 08:06 Eos # 0.0 K/uL (0.0-0.7) 10/16/16 08:06 Baso # 0.0 K/uL (0.0-0.2) 10/16/16 08:06 Neutrophils % (Manual) 91 % (50-75) H 10/15/16 08:19 Lymphocytes % (Manual) 5 % (20-40) L 10/15/16 08:19 Monocytes % (Manual) 4 % (0-10) 10/15/16 08:19 Platelet Estimate Normal (NORMAL) 10/15/16 08:19 RBC Morphology Normal 10/15/16 08:19 PT 14.7 SECONDS (9.7-12.2) H 10/13/16 08:17 INR 1.3 10/13/16 08:17 APTT 27 SECONDS (21-34) 10/13/16 08:17 Sodium 135 mmol/L (132-148) 10/17/16 08:41 Potassium 3.5 mmol/L (3.6-5.2) L 10/17/16 08:41 Chloride 100 mmol/L (98-107) 10/17/16 08:41 Carbon Dioxide 26 mmol/L (22-30) 10/17/16 08:41 Anion Gap 13 (10-20) 10/17/16 08:41 BUN 11 mg/dL (9-20) 10/17/16 08:41 Creatinine 0.9 MG/DL (0.8-1.5) 10/17/16 08:41 Est GFR ( Amer) > 60 10/17/16 08:41 Est GFR (Non-Af Amer) > 60 10/17/16 08:41 Random Glucose 112 mg/dL (75-110) H 10/17/16 08:41 Calcium 8.0 mg/dl (8.6-10.4) L 10/17/16 08:41 Total Bilirubin 0.7 mg/dL (0.2-1.3) 10/17/16 08:41 AST 26 U/L (17-59) 10/17/16 08:41 ALT 58 U/L (21-72) 10/17/16 08:41 Alkaline Phosphatase 65 U/L (38-126) 10/17/16 08:41 Troponin I < 0.0120 ng/mL (0.00-0.120) 10/11/16 22:38 Total Protein 6.1 g/dL (6.3-8.3) L 10/17/16 08:41 Albumin 3.2 g/dL (3.5-5.0) L 10/17/16 08:41 Globulin 3.0 gm/dL (2.2-3.9) 10/17/16 08:41 Albumin/Globulin Ratio 1.1 (1.0-2.1) 10/17/16 08:41 Lipase 129 U/L (23-300) 10/11/16 22:38 Urine Color Yellow (YELLOW) 10/11/16 22:49 Urine Clarity Hazy (Clear) 10/11/16 22:49 Urine pH 8.0 (5.0-8.0) 10/11/16 22:49 Ur Specific [place] 1.021 (1.003-1.030) 10/11/16 22:49 Urine Protein Negative mg/dL (NEGATIVE) 10/11/16 22:49 Urine Glucose (UA) Normal mg/dL (Normal) 10/11/16 22:49 Urine Ketones 2+ mg/dL (NEGATIVE) H 10/11/16 22:49 Urine Blood Negative (NEGATIVE) 10/11/16 22:49 Urine Nitrate Negative (NEGATIVE) 10/11/16 22:49 Urine Bilirubin Negative (NEGATIVE) 10/11/16 22:49 Urine Urobilinogen Normal mg/dL (0.2-1.0) 10/11/16 22:49 Ur Leukocyte Esterase Neg Arsalan/uL (Negative) 10/11/16 22:49 Urine RBC (Auto) 5 /hpf (0-3) H 10/11/16 22:49 Amorphous Sediment Occ /ul (<OCC) H 10/11/16 22:49 Urine Opiates Screen Negative (NEGATIVE) 10/11/16 22:49 Urine Methadone Screen Negative (NEGATIVE) 10/11/16 22:49 Ur Barbiturates Screen Positive (NEGATIVE) H 10/11/16 22:49 Ur Phencyclidine Scrn Negative (NEGATIVE) 10/11/16 22:49 Ur Amphetamines Screen Negative (NEGATIVE) 10/11/16 22:49 U Benzodiazepines Scrn Negative (NEGATIVE) 10/11/16 22:49 U Oth Cocaine Metabols Negative (NEGATIVE) 10/11/16 22:49 U Cannabinoids Screen Negative (NEGATIVE) 10/11/16 22:49 - Hospital Course Hospital Course: Patient is a 36 year old male who was admitted on 10/12/16 with right upper quadrant pain. CT scan on admission showed mesenteric stranding in region of gallbladder, no stones. Patient had HIDA scan on 10/13/16 that showed acute cholecystitis. Patient was brought to the OR on 10/14/16 and had laparoscopic converted to open cholecystectomy with removal of gangrenous gallbladder. Patient was treated with IV antibiotics while hospitalized. Patient's pain was managed. Vital signs and daily labs were monitored. On POD #3 patient was deemed suitable for discharge home. Patient is discharged home with cipro 500mg twice daily for 7 days, flagyl 500mg PO q8h for 7 days, and toradol 10mg q6h as needed for pain. Patient is to avoid heavy lifting for four weeks, and follow up with Dr. Melvin in two weeks for staple removal. Discharge Exam - Head Exam Head Exam: ATRAUMATIC, NORMOCEPHALIC - Eye Exam Eye Exam: EOMI - ENT Exam ENT Exam: Mucous Membranes Moist - Respiratory Exam Respiratory Exam: NORMAL BREATHING PATTERN - GI/Abdominal Exam GI & Abdominal Exam: Soft, Tenderness (mild tenderness around incision, drain removed) - Neurological Exam Neurological exam: Alert - Psychiatric Exam Psychiatric exam: Normal Affect - Skin Skin Exam: Dry, Warm Discharge Plan - Discharge Medications Prescriptions: Ciprofloxacin [Cipro] 500 mg PO BID #14 tab Ketorolac Tromethamine [Toradol] 10 mg PO Q6H PRN #28 tab PRN Reason: Pain, Moderate (4-7) Metronidazole [Flagyl] 500 mg PO Q8H #21 tab - Follow Up Plan Condition: GOOD Disposition: HOME/ ROUTINE Additional Instructions: Patient is being discharged with cipro 500mg by mouth twice daily, flagyl 500mg by mouth three times daily, and toradol 10mg every 6 hours as needed for pain. Patient is to follow up with Dr. Melvin in the office in two weeks for staple removal. Patient should avoid heavy lifting for four weeks. Patient can shower but should not take a bath or swim. Referrals: Lucien Melvin MD [Staff Provider] - 2 Weeks
[2016-10-17 16:35] VITALS: BP 138/93; PULSE 79; TEMP 97.4
--- NOTE | 2016-10-18 13:16 | CARD ---
APPROVED REPORT EKG Measurement Heart [id number] <Conclusion> Sinus bradycardia Minimal voltage criteria for LVH, may be normal variant Borderline ECG
== END 2016-10-17 18:20 | disposition home or self-care (01) | DRG 197 ==
LOC: C.ER 21:33 → C.3T 10-12 01:34 → OBSVTOIN 10-14 14:00
PROVIDERS: ADMIT Surgery; ATTEND Surgery
PROC: 0FJ44ZZ Inspection of Gallbladder, Percutaneous Endoscopic Approach (ICD-10-PCS; 2016-10-14)
PROC: 0FT40ZZ Resection of Gallbladder, Open Approach (ICD-10-PCS; principal; 2016-10-14 14:00)
DX: K80.00 Calculus of gallbladder with acute cholecystitis without obstruction (principal); E87.6 Hypokalemia; K66.0 Peritoneal adhesions (postprocedural) (postinfection); Z53.31 Laparoscopic surgical procedure converted to open procedure